=== PATIENT | female | born 1985 | race Caucasian/White ===

== ENCOUNTER → 2019-03-23 08:12 | Outpatient (CLI) | payer SELFPAY ==
--- OUTSIDE RECORDS SUMMARY | 2019-03-23 09:02 | XMS RPT_ITS | CCD ---
:1985 External Reference #:[id number] Author Organization [facility] Care Team Providers Name Role Phone ROBERT, E Unavailable Unavailable ROBERT, E Unavailable Unavailable SIMPSON, T Unavailable Unavailable ROBERT, E Unavailable Unavailable SIMPSON, T Unavailable Unavailable PROVIDER Unavailable Unavailable PROVIDER Unavailable Unavailable PROVIDER Unavailable Unavailable Results Result Name Value Range Unit Interpretation Flag Date Location emergency report on 2018-07-16 EMERGENCY REPORT [facility] EMERGENCY Danita l 07-16-2018 [facility] ROOM REPORT NAME ACCOUNT SEX [facility] AGE ADMIT DISCHARGE PT MED. ([id number]) RECORD# NUMBER DATE DATE TYPE LACIE RAMOS [id number] F 32 07/11/18 07/11/18 3 [id number] ROOM: ER DATE OF : 1985 DICTATING PHYSICIAN: Nino Jones CHIEF COMPLAINT/HISTORY OF PRESENT ILLNESS: Patient came in. She is complaining of generalized abdominal pain. She had some nausea and vomiting. She had some back pain. It is a 6 out of 10. She talked to her practitioner who was concerned and thought she may have pancreatitis or some other etiology and told her to come to the emergency department. She says the pain is a 7 out of 10, suppressed. Nothing made it better or worse. PAST MEDICAL HISTORY: She has had a history of constipation issues in the past and depression. PAST SURGICAL HISTORY: She has had ankle surgery. SOCIAL HISTORY: She does not smoke or drink. She is here with her significant other. REVIEW OF SYSTEMS: Ten systems were reviewed and negative except as mentioned above. PHYSICAL EXAMINATION: She is awake, alert and oriented female in no acute distress. Patient is afebrile, blood pressure 104/57, pulse 113, respirations 18. Head is normocephalic, atraumatic. Eyes: Pupils are equal, round, and reactive to light. Extraocular muscles are intact. Nares are patent. Throat has adequate moisture. Uvula is midline. Neck is supple without petechiae or rash. Heart without murmur. S1 equal to S2. No S3 or S4 appreciated. Lungs are clear to auscultation bilaterally. No rales, rhonchi, or retractions. Abdomen is soft, nontender, nondistended. Skin is warm and dry. DIAGNOSTIC DATA: test negative. Urinalysis unremarkable. She had a CT which showed some changes and possible enteritis, possible constipation. EMERGENCY DEPARTMENT COURSE AND TREATMENT: I see no obvious etiology for abdominal pain. DIAGNOSIS: Abdominal pain, cause not clear. PLAN/DISPOSITION: She can follow up at 6:30 in the morning for a recheck. I also wrote her for MiraLAX. She will be discharged in stable condition. Page 1 of 2 LACIE RAMOS A Emergency Room Report Dictated By: Nino Jones DO 07/11/18 15:04 JOB #: [id number] Transcribed By: chad 07/11/18 20:53 Electronically signed by: SOHAIL Jones D.O. 07/16/18 08:12 Page 2 of 2 LACIE RAMOS A Emergency Room Report urinalysis on 07-11 Bilirubin NEG NORMAL: NEGATIVE Normal 07-11-2018 [facility] (97850) Comment: Performed By: #### [id number] ## ##[place] [address] Blood NEG NORMAL: NEGATIVE Normal 07-11-2018 [facility] (93559) Comment: Performed By: #### [id number] ## ##[place] [id number] Clarity clear NORMAL: CLEAR Normal 07-11-2018 [facility] (52649) Comment: Performed By: #### [id number] ## ##[address] [address] Color sonny NORMAL: YELLOW Normal 07-11-2018 [facility] (31486) Comment: Performed By: #### [id number] ## ##[address] [address] Glucose NORM NORMAL: NORMAL Normal 07-11-2018 [facility] (65651) Comment: Performed By: #### [id number] ## ##[facility],[address] [place] [address] 87759 Ketone 150 NORMAL: NEGATIVE Abnormal 07-11-2018 [facility] (61733) Comment: Performed By: #### [id number] ## ##[facility],[address] [place] [address] 82762 Leukocytes NEG NORMAL: NEGATIVE Normal 07-11-2018 [facility] (12948) Comment: Performed By: #### [id number] ## ##[facility],[address] [place] [address] 43194 Microscopic NOT INDICATED Normal 07-11-2018 [facility] (65439) Comment: Performed By: #### [id number] ## ##[facility],[address] [place] [address] 88353 Nitrite NEG NORMAL: NEGATIVE Normal 07-11-2018 [facility] (11712) Comment: Performed By: #### [id number] ## ##[facility],[address] [place] [address] 51674 ph 6 NORMAL: 5.0-8.0 Normal 07-11-2018 [facility] (06528) Comment: Performed By: #### [id number] ## ##[facility],[address] [place] [address] 44904 Protein mass conc NEG NORMAL: NEGATIVE g/dL Normal 07-11 [facility] ( 06274) Comment: Performed By: #### [id number] ## ##[facility],[address] [place] [address] 80805 Sp [place] 1.020 NORMAL: 1.010-1.030 Normal 8 [facility] ( 15685) Comment: Performed By: #### [id number] ## ##[facility],[address] [place] [address] 38696 Specimen type UNSPECIFIED Normal 07-11-2018 [facility] (55675) Comment: Performed By: #### [id number] ## ##[facility],[address] [place] [address] 11696 Urobilinog NORM NORMAL: NORMAL Normal 07-11-2018 [facility] (25673) Comment: Performed By: #### [id number] ## ##[facility],[address] [place] [address] 26935 urine on 2018-07-11 EXTERNAL QC DONE? YES Normal 07-11-2018 [facility] (43345) Comment: Performed By: #### [id number] ## ##[facility],[address] [place] [address] 50139 INTERNAL QC PASS Normal 07-11-2018 [facility] (21910) Comment: Performed By: #### [id number] ## ##[facility],[address] [place] [address] 73565 UR NEGATIVE NEGATIVE Normal 07-11-2018 [facility] (68984) Comment: Performed By: #### [id number] ## ##[facility],[address] [place] [address] 99266 lipase on 2018-06-17 6 Lipase enzyme act/vol 14.0 18.0 - 51.0 U/L Low 2017 [facility] ( 86690) Comment: Performed By: #### [id number] ## ##[facility],[address] [place] [address] abdomen/pelvis w on 2018-07-11 CT ABDOMEN/PELVIS [place] [address] Normal 07-11-2018 [facility] [address] Ph: [phone] Patient: RACHELLACIE Phone#: : 1985 Age: 32 Gender: F Pt. Type: ER Account: [id number] Location: [facility] Ordering: NINO JONES Exam Date: 07/11/2018/13:43 Family Phys: CODI SIMPSON Charge Code: 534082 Physician: Kit Carson Order #: [id number] DLP Dose#: PROCEDURE: CT ABDOMEN/PELVIS WITH CONTRAST COMPARISON: None. INDICATIONS: Abdominal pain TECHNIQUE: After obtaining the patient's consent, CT images were created with non-ionic intravenous contrast material. All CT scans at this facility use dose modulation, iterative reconstruction, and/or weight based dosing when appropriate to reduce radiation dose to as low as reasonably achievable. IV CONTRAST: Omnipaque 350,80ml TOTAL DOSE: 10.40 CTDIvol(mGy) FINDINGS: LIVER: Normal. No enlargement, atrophy, abnormal density, or significant focal lesion. BILIARY: The gallbladder is present. PANCREAS: Normal. No lesion, fluid collection, ductal dilatation, or atrophy. SPLEEN: Normal. No enlargement or focal lesion. There is a splenule at the splenic hilum. KIDNEYS: Kidneys enhance and excrete contrast symmetrically. No hydronephrosis. ADRENALS: Normal. No mass or enlargement. AORTA/VASCULAR: No aortic aneurysm. RETROPERITONEUM: Normal. No mass or adenopathy. BOWEL/MESENTERY: There are fluid-filled loops of small bowel which are not dilated. There are small mesenteric lymph nodes present. Liquidy stool is seen in the ascending colon. Moderate to large degree of stool throughout the colon. The visualized portion the appendix is unremarkable. ABDOMINAL WALL: Small fat containing umbilical hernia. URINARY BLADDER: Normal. No visible focal wall thickening, lesion, or calculus. PELVIC NODES: Normal. No adenopathy. Continued Report - Page 2 of 2 Patient: LACIE RAMOS Phone#: : 1985 Age: 32 Gender: F Pt. Type: ER Account: [id number] Location: 052 Ordering: NINO JONES Exam Date: 07/11/2018/13:43 Family Phys: CODI SIMPSON Charge Code: 909130 Physician: Kit Carson Order #: [id number] DLP Dose#: PELVIC ORGANS: The uterus is retroverted. No adnexal masses. BONES: Normal. No bony lesion or fracture. LUNG BASES: Normal. No visible pulmonary or pleural disease. OTHER: Negative. CONCLUSION: 1. Fluid-filled loops small bowel without obstruction or dilatation and small mesenteric lymph nodes. This may represent enteritis versus incidental phase of peristalsis. 2. Constipation. Dictated by: Angle Cheek MD on 07/11/2018 at 14:16 Approved by: Angle Cheek MD on 07/11/2018 at 14:16 cmp with egfr on 03-07-26 Age Reported 32 years Normal 07-11-2018 [facility] (70737) Comment: Performed By: #### [id number] ## ##[address] [address] Albumin mass conc 4.3 3.4 - 4.8 g/dL Normal 07-11-2018 [facility] ( 97053) Comment: Performed By: #### [id number] ## ##[address] [address] Albumin/Globulin mass ratio 1.9 0.9 - 1.6 {ratio} High [facility] (91538) Comment: Performed By: #### [id number] ## ##[address] [address] ALK PHOS 18 38 - 126 U/L Low 07-11-2018 [facility] (55710) Comment: Performed By: #### [id number] ## ##[address] [address] ALT/SGPT 15 8 - 35 U/L Normal 07-11-2018 [facility] (58024) Comment: Performed By: #### [id number] ## ##[address] [address] Anion gap 3 molar conc 14 10 - 20 mmol/L Normal 018 [facility] ( 99967) Comment: Performed By: #### [id number] ## ##[address] [address] AST/SGOT 18 13 - 39 U/L Normal 07-11-2018 [facility] (93227) Comment: Performed By: #### [id number] ## ##[address],[place] [address] B/C RATIO 27 0 - 30 ratio Normal 07-11-2018 [facility] (42935) Comment: Performed By: #### [id number] ## ##[facility],[address] [place] [address] 03599 Bilirubin mass conc 0.7 0.0 - 1.5 mg/dl Normal 07-11-2018 [facility] ( 67443) Comment: Performed By: #### [id number] ## ##[facility],[address] [place] [address] 24785 Calcium mass conc 9.0 8.6 - 10.2 mg/dl Normal 07-11-2018 [facility] ( 58769) Comment: Performed By: #### [id number] ## ##[facility],[address] [place] [address] 82384 Chloride molar conc 102 98 - 107 mmol/L Normal 07-11-2018 [facility] ( 54041) Comment: Performed By: #### [id number] ## ##[facility],[address] [place] [address] 10927 CO2 molar conc 23.6 21.0 - 31.0 mmol/L Normal 07-11-2018 [facility] ( 42043) Comment: Performed By: #### [id number] ## ##[facility],[address] [place] [address] 12239 Creatinine mass conc 0.7 0.6 - 1.2 mg/dl Normal 8 [facility] ( 03699) Comment: Performed By: #### [id number] ## ##[facility],[address] [place] [address] 50858 GFR/1.73 sq M >60 60 - 999 mL/min/{1.73_m2} Normal 8 [facility] non-blacks MDRD vol (64027) rate/area (S/P/Bld) Comment: Performed By: #### [id number] ## ##[facility],[address] [place] [address] 79499 Result Comment: ACCORDING TO THE NATIONAL KIDNEY DISEASE EDUCATION PROGRAM(NKDE), A NORMAL eGFR IS A VALUE GREATER THAN OR EQUAL TO 60 ML/MIN/1.73 SQ METERS.CHRONI C KIDNEY DISEASE: <60mL/MIN/1.73 SQ METERSKIDNEY FAILURE: <15mL/MIN/1.73 SQ M ETERSTHIS TEST SHOULD ONLY BE USED FOR PATIENTS 18 YEARS OF AGE AND OLDER. GFR/1.73 sq M predicted among Normal 07-11-2018 [facility] non-blacks MDRD vol rate/area Hospital (08222) (S/P/Bld) Comment: Result Comment: COMPREHENSIV E METABOLIC PANEL Performed By: #### [id number] ## ##[address] [address] Globulin Calculated mass 2.3 1.5 - 3.8 G/DL Normal 07-11 [facility] (S) [facility] ( 02771) Comment: Performed By: #### [id number] ## ##[facility],[address] [place] [address] 03512 Glucose mass conc 99 74 - 106 mg/dl Normal 07-11-2018 [facility] (01479) Comment: Performed By: #### [id number] ## ##[facility],[address] [place] [address] 44986 Potassium molar conc 3.5 3.5 - 5.1 mmol/L Normal 8 [facility] ( 58590) Comment: Performed By: #### [id number] ## ##[facility],[address] [place] [address] 23637 Protein mass conc 6.6 6.4 - 8.3 g/dl Normal 07-11-2018 [facility] ( 41221) Comment: Performed By: #### [id number] ## ##[facility],[address] [place] [address] 75946 Sodium molar conc 136 136 - 145 mmol/l Normal 07-11-2018 [facility] ( 83279) Comment: Performed By: #### [id number] ## ##[facility],[address] [place] [address] 67993 Urea nitrogen mass conc 19 6 - 20 mg/dl Normal 2017 [facility] ( 88133) Comment: Performed By: #### [id number] ## ##[facility],[address] [place] [address] 03931 cbc on 2018-07-11 Basophils Auto #/vol 0.00 0.00 - 0.10 x10EE3/UL Normal 018 [facility] (82016) Comment: Performed By: #### [id number] ## ##[facility],[address] [place] [address] 19719 Basophils/100 WBC Auto (d) 0.1 0.0 - 2.0 % Normal 1 [facility] ( 49280) Comment: Performed By: #### [id number] ## ##[facility],[address] [place] [address] 36867 CBC Normal 07-11-2018 [facility] (15591) Comment: Result Comment: CBC-COMPLETE BLOOD COUNT Performed By: #### [id number] ## ##[facility],[address] [place] [address] 25647 Eosinophils Auto #/vol 0.00 0.00 - 0.50 x10EE3/UL Normal 07-11 [facility] (19198) Comment: Performed By: #### [id number] ## ##[facility],[address] [place] [address] 48795 Eosinophils/100 WBC Auto 0.0 0.0 - 7.0 % Normal 07-11 [facility] ( 76075) Comment: Performed By: #### [id number] ## ##[facility],[address] [place] [address] 70993 Erythrocyte distribution 12.7 12.0 - 15.6 % Normal [facility] width Auto Ratio (RBC) [facility] (58704) Comment: Performed By: #### [id number] ## ##[facility],[address] [place] [address] 62951 Hematocrit Auto Volume 39.4 34.0 - 46.0 % Normal 07-11 [facility] (d) [facility] (96442) Comment: Performed By: #### [id number] ## ##[facility],[address] [place] [address] 45153 Hemoglobin mass conc 14.0 12.0 - 16.0 g/dl Normal 018 [facility] ([facility]) [facility] (11808) Comment: Performed By: #### [id number] ## ##[address] [address] Lymphocytes Auto #/vol 0.40 0.80 - 2.80 x10EE3/UL Low 07-11 [facility] (d) [facility] (94573) Comment: Performed By: #### [id number] ## ##[address] [address] Lymphocytes/100 WBC Auto (d) 4.4 20.0 - 45.0 % Low 07-11-2018 [facility] ( 35130) Comment: Performed By: #### [id number] ## ##[address] [address] MANUAL DIFF N/A Normal 07-11-2018 [facility] (48044) Comment: Performed By: #### [id number] ## ##[address] [address] MCH Auto Entitic mass 30 27 - 33 pg Normal 07-11-20 18 [facility] (RBC) [facility] ( 97591) Comment: Performed By: #### [id number] ## ##[facility],[address] [place] [address] 70277 MCHC Auto mass conc 36 32 - 36 X10 3 Normal 07-11-2018 [facility] ([facility] ( 65177) Comment: Performed By: #### [id number] ## ##[address] [address] MCV Auto Entitic volume 85 80 - 99 fl Normal 2017 [facility] ( 05806) Comment: Performed By: #### [id number] ## ##[address] [address] Monocytes Auto #/vol 0.30 0.20 - 1.00 x10EE3/UL Normal 018 [facility] (91806) Comment: Performed By: #### [id number] ## ##[address] [address] MONOS % 3.1 0.0 - 10.0 % Normal 07-11-2018 [facility] (02776) Comment: Performed By: #### [id number] ## ##[address] [address] Morphology Interp [place] (Bld) N/A Normal [facility] (37853) Comment: Result Comment: {CD] Performed By: #### [id number] ## ##[address] [address] Neutrophils Auto #/vol 7.50 1.50 - 7.10 x10EE3/UL High 07-11 [facility] ([facility]) [facility] (84558) Comment: Performed By: #### [id number] ## ##[address] [address] Neutrophils/100 WBC Auto 92.4 46.0 - 76.0 % High [facility] ([facility] (36282) Comment: Performed By: #### [id number] ## ##[address] [address] Platelet mean volume Auto 6.9 6.6 - 10.5 fl Normal [facility] (58467) Comment: Result Comment: AUTOMATED DI FFERENTIAL Performed By: #### [id number] ## ##[facility],[address] [place] [address] 09694 Platelets Auto #/vol 154 150 - 450 x10EE3/UL Normal 8 [facility] (39015) Comment: Performed By: #### [id number] ## ##[facility],[address] [place] [address] 76684 RBC Auto #/vol 4.65 4.10 - 5.30 x 10EE6/UL Normal 07-11-2018 [facility] (28801) Comment: Performed By: #### [id number] ## ##[facility],[address] [place] [address] 29825 WBC Auto #/vol 8.1 4.5 - 10.8 x 10EE3/UL Normal 07-11-2018 [facility] ( 62787) Comment: Performed By: #### [id number] ## ##[facility],[address] [place] [address] 32280 Encounters Date Type Reason Provider Location 07-11-2018 - Emergency Esophageal NINO Conde [facility] 07-11-2018 department patient disorders ROBERT DICKSON [place] [facility] (64288 ) CODI Conde ROBERTELMA SIMPSON UNKNOWN PROVIDER UNKNOWN PROVIDER UNKNOWN PROVIDER Procedures Procedure Name Date Provider Location Urinalysis 07-11-2018 [facility] (15079) Comment: Result Comment: URINALYSIS Performed By: #### [id number] ## ##[address] [address] Summary Purpose Family History No Family History Records Found Advance Directives No Advanced Directives Records Found Additional Source Comments FOR RECORDS PERTAINING TO PATIENTS WHO ARE OR HAVE BEEN ENROLLED IN A CHEMICAL DEPENDENCY/SUBSTANCE ABUSE PROGRAM, SOME INFORMATION MAY BE OMITTED. This clinical summary was aggregated from multiple sources. Caution should be exercised in using it in the provision of clinical care. This summary normalizes information from multiple sources, and as a consequence, information in this document may materially changethe coding, format and clinical context of patient data. In addition, data may be omittedin some cases. CLINICAL DECISIONS SHOULD BE BASED ON THE PRIMARY CLINICAL RECORDS. [facility] provides no warranty or guarantee of the accuracy or completeness of information in this document. UNRECOGNIZED CONTENT PROVIDED BELOW FOR UNRECOGNIZED SECTION INFORMATION SOURCE DATE CREATED AUTHOR AUTHOR'S ORGANIZATIO N 08/23/2018 [facility]
[2019-03-23 10:44] LABS: Absolute Lymphocyte Count 1.52 X10^3/ul (0.83-4.51); Absolute Neutrophil Count 2.5 X10^3/uL (2.0-7.7); Basophil# 0.01 X10^3/uL; Basophil% 0.2 % (0-1); Eosinophil# 0.13 X10^3/uL; Eosinophils% 2.9 % (0-5); Hematocrit 42.9 % (37-47); Hemoglobin 14.3 g/dl (12.0-15.0); Lymphocyte # 1.52 X10^3/ul (4.0); Lymphocyte % 34.1 % (19-41); Mean Corp Hgb Conc 33.3 g/gl (32-36); Mean Corpuscular Hgb 29.4 pg (27.0-32.0); Mean Corpuscular Volume 88.3 fL (81-99); Mean Platelet Vol. 9.4 fl (6.2-12.0); Monocyte# 0.27 X10^3/uL; Monocyte% 6.1 % (0-10); Neutrophil # 2.52 X10^3/uL (2.7-7.7); Neutrophil % 56.5 % (47-70); Platelet Count 194 K/mm3 (150-450); RBC Distribution Width SD 41.6 fl (35.1-43.9); Red Blood Count 4.86 M/mm3 (4.2-5.4); White Blood Count 4.5 K/mm3 (4.4-11.0)
[2019-03-23 10:46] LABS: POSITIVE COUNT NO; POSITIVE DIFFERENTIAL NO; POSITIVE MORPHOLOGY NO
[2019-03-23 11:05] LABS: Anion Gap 4 (5-15); BUN 21 mg/dL (7-18); BUN/Creat Ratio 26.7 RATIO (10-20); Calcium,Total 8.9 mg/dL (8.5-10.1); Chloride 107 mmol/L (98-107); Cholesterol 160 mg/dL (200); Creatinine, Serum 0.79 mg/dL (0.55-1.02); EST Glomerular Filtration Rate 88 mL/min (>60); Est Glom Filt Rate - Afr Amer 107 mL/min (>60); Glucose 96 mg/dL (74-106); High Density Lipoprotein 55 mg/dL; Potassium 3.9 mmol/L (3.5-5.1); Sodium Level 138 mmol/L (136-145); Thyroid Stim Hormone (TSH) 2.74 uIU/mL (0.358-3.74); Triglycerides 56 mg/dL; Very Low Density Lipoprotein 11 mg/dL (5-40)
== END ==
PROVIDERS: Family Provider Family Medicine; PCP Family Medicine; Referring Provider Family Medicine; Visit Provider Family Medicine
DX: Z00.00 Encounter for general adult medical examination without abnormal findings (principal); R53.83 Other fatigue
CPT/HCPCS: 36415; 80048; 80061; 84443; 85025

== ENCOUNTER → 2020-03-01 15:34 | Outpatient (CLI) | payer SELFPAY ==
[2015-12-30 16:03] VITALS: BMI 31.2
[2020-03-01 16:27] LABS: Hemoglobin A1c 4.9 % (3.8-5.6)
[2020-03-01 16:49] LABS: Estradiol 35.5 pg/mL; Follicle Stimulating Hormone 10.2 mIU/mL; Prolactin 44.2 ng/mL
[2020-03-01 19:21] LABS: Vitamin D,25 Hydroxy 56.2 ng/mL
[2020-03-03 08:08] LABS: DHEA Sulfate 86.6 ug/dL (57.3-279.2)
[2020-03-07 14:55] LABS: HPV APTIMA, High Risk Negative (Negative)
== END ==
PROVIDERS: Visit Provider Obstetrics & Gynecology
DX: Z12.4 Encounter for screening for malignant neoplasm of cervix (principal); N93.9 Abnormal uterine and vaginal bleeding, unspecified; N94.3 Premenstrual tension syndrome
CPT/HCPCS: 36415; 82306; 82627; 82670; 83001; 83036; 84146; 84270; 84403; 87624; 88175; 82626; G0145

== ENCOUNTER → 2020-04-15 14:37 | Outpatient (CLI) | payer SELFPAY ==
[2015-12-30 16:03] VITALS: BMI 31.2
[2020-04-15 16:32] LABS: Estradiol 68.7 pg/mL
[2020-04-15 16:35] LABS: Progesterone Level 25.53 ng/mL (See Comment)
== END ==
PROVIDERS: Visit Provider Obstetrics & Gynecology
DX: N94.3 Premenstrual tension syndrome (principal); N92.6 Irregular menstruation, unspecified; N93.9 Abnormal uterine and vaginal bleeding, unspecified; Z79.899 Other long term (current) drug therapy
CPT/HCPCS: 36415; 82627; 82670; 84144; 82626

== ENCOUNTER 2021-03-15 10:12 | Emergency (ER) | payer OTHER, SELFPAY ==
[2021-03-15 10:14] VITALS: BP 120/75; PULSE 90; RESP 16; TEMP 36; O2SAT 99; BMI 25.7
--- NOTE | 2021-03-15 10:25 | EDS_ITS ---
HPI History of Present Illness Chief Complaint: Dental Informant: patient Onset/Context/Timing Onset: Days Context: Gradual Onset Current Severity: Mild Maximum Severity: Moderate Narrative Narrative: Patient presents secondary to dental pain. Patient had a root canal last week. During the procedure they noted that the patient had an abscess. She went back to the dentist last Saturday and was started on amoxicillin and [place]. Patient states she was also taking Advil to help with swelling. She still has pain but states swelling has significantly improved. She was advised to come in for evaluation. Patient denies fever or chills. No problems swallowing. PFSH PFS Medical History Depression no medical history Home Medications Children's Multi-Vit Gummies 12/30/15 [History Last Taken 12/30/15 10:00] fluvoxamine 100 mg PO DAILY 12/30/15 [History Last Taken 12/30/15 10:00] trazodone 50 mg PO DAILY 12/30/15 [History Last Taken 12/29/15 22:00] clindamycin HCl 300 mg PO 4X/DAY #80 cap 03/15/21 [Rx Last Taken Unknown] venlafaxine 75 mg PO DAILY 03/15/21 [History Last Taken Unknown] Allergy/AdvReac Type Severity Reaction Status Date / Time No Known Allergies Allergy Verified 03/15/21 10:13 Social History Smoking Status: Never smoker ROS ROS ED Constitutional Constitutional ED: Denies chills or fever(s) Eyes Eyes: Denies change in vision ENT ENT ED: Reports other Details: Right upper dental pain ; Denies sore throat Cardiovascular Cardiovascular: Denies chest pain Respiratory/Chest Respiratory/Chest: Denies cough or dyspnea Gastrointestinal Gastrointestinal: Denies abdominal pain, diarrhea, nausea or vomiting Genitourinary Genitourinary ED: Denies dysuria Musculoskeletal Musculoskeletal: Denies back pain Integumentary Denies rash Neurologic Neurologic: Denies headache(s) or weakness Psychiatric Psychiatric: Denies anxiety or depression Endocrine Endocrinology: Denies polydipsia or polyuria Allergic/Immunologic Allergic/Immunologic ED: Denies urticaria EXAM Physical Exam Const Vital Signs: 03/15/21 10:14 Temperature 96.8 F L Temperature Source Temporal Pulse Rate 90 Respiratory Rate 16 Blood Pressure 120/75 Blood Pressure Mean 90 Pulse Ox 99 Oxygen Delivery Method Room Air Positive well nourished and well developed General Appearance ED: well developed HEENT Reports TM's clear HEENT Narrative: Right maxillary first molar tender. Minimal surrounding gum edema. No trismus and posterior pharynx exam is normal. No evidence of Hesham's angina. Patient tolerating secretions well and has a strong voice. Tympanic Membrane ED: Yes TM's clear Eyes PERRL and EOMs intact bilaterally Neck supple Chest Wall inspection of chest normal and palpation of chest normal Resp normal respiratory effort and clear to auscultation bilaterally Cardio regular rate and regular rhythm Extremity normal to inspection Neuro oriented x3 Sensorium / Orientation: alert Psych mental status grossly normal Skin no rashes or lesions noted MDM MDM Treatment and Re-Evaluation Comments:: Patient has been on amoxicillin. She be switched to clindamycin. She will continue Advil as needed at home for pain. She is to follow-up with her dentist next week. Discharge Plan Triage Chief Complaint: Dental ED Provider: Katie Diaz Dx/Rx/DC Orders Clinical Impression: Odontalgia Instructions: ED Dental Pain Prescriptions: New clindamycin HCl 150 MG capsule 300 mg PO 4X/DAY Qty: 80 RF: 0 No Action trazodone 50 MG tablet 50 mg PO DAILY RF: 0 fluvoxamine 100 MG capsule,extended release 24hr 100 mg PO DAILY RF: 0 Children's Multi-Vit Gummies RF: 0 venlafaxine 75 mg capsule,extended release 24hr 75 mg PO DAILY RF: 0 Primary Care Provider: Gayathri Montiel,Out of Referrals: Gayathri Montiel,Out of [Primary Care Provider] - Activity Restrictions/Additional Instructions: Follow-up with your dentist next week. Disposition Disposition: Home, Self Care
[2021-03-15] MEDS: Clindamycin HCl 150 MG Capsule 300 MG PO (10:34)
== END 2021-03-15 10:45 | disposition home or self-care (01) ==
LOC: ED 10:44
PROVIDERS: Emergency Provider Emergency Medicine; PCP Family Medicine
DX: K08.89 Other specified disorders of teeth and supporting structures (principal); F32.9 Major depressive disorder, single episode, unspecified; Z79.899 Other long term (current) drug therapy
CPT/HCPCS: 99283

== ENCOUNTER → 2024-12-04 | Outpatient (CLI) | payer SELFPAY ==
[2024-12-04 17:47] LABS: Absolute Lymphocyte Count 2.24 X10^3/uL (0.83-4.51); Absolute Neutrophil Count 4.3 X10^3/uL (2.0-7.7); Basophil# 0.01 X10^3/uL; Basophil% 0.1 % (0-1); Eosinophil# 0.17 X10^3/uL; Eosinophils% 2.4 % (0-5); Hematocrit 42.1 % (37-47); Hemoglobin 14.2 g/dL (12.0-15.0); Lymphocyte # 2.24 X10^3/ul (0.83-4.51); Mean Corp Hgb Conc 33.7 g/dL (32-36); Mean Corpuscular Hgb 29.6 pg (27.0-32.0); Mean Corpuscular Volume 87.7 fL (81-99); Mean Platelet Vol. 8.9 fl (6.2-12.0); Monocyte# 0.46 X10^3/uL; Monocyte% 6.4 % (0-10); NRBC Flagged by Analyzer 0 % (0-5); Neutrophil # 4.32 X10^3/uL (2.7-7.7); Neutrophil % 59.8 % (47-70); Platelet Count 258 K/mm3 (150-450); RBC Distribution Width CV 12.6 % (11.6-14.6); RBC Distribution Width SD 40.5 fl (35.1-43.9); White Blood Count 7.2 K/mm3 (4.4-11.0)
[2024-12-04 18:20] LABS: Anion Gap 12 (5-15); BUN 12 mg/dL (4-19); BUN/Creat Ratio 15.5 RATIO (10-20); Calcium,Total 9.6 mg/dL (7.6-11.0); Carbon Dioxide 22.8 mmol/L (21.0-32.0); Chloride 103 mmol/L (98-108); Cholesterol 186 mg/dL (<=200); Creatinine, Serum 0.76 mg/dL (0.70-1.20); EST Glomerular Filtration Rate 102 (>60); Glucose 77 mg/dL (70-99); High Density Lipoprotein 46 mg/dL; Low Density Lipoprotein Calc. 92 mg/dL; Potassium 3.9 mmol/L (3.3-5.1); Sodium Level 138 mmol/L (133-145); Triglycerides 243 mg/dL; Very Low Density Lipoprotein 49 mg/dL (5-40); cholesterol:hdl ratio screen 4.07
== END | disposition home or self-care (01) ==
LOC: MFPLAB 16:17
PROVIDERS: PCP Family Medicine; Referring Provider Family Medicine; Visit Provider Family Medicine
DX: Z00.00 Encounter for general adult medical examination without abnormal findings (principal)
CPT/HCPCS: 36415; 80048; 80061; 85025

== ENCOUNTER → 2025-03-18 | Outpatient (CLI) | payer OTHER, SELFPAY ==
[2025-03-18 12:22] LABS: Hematocrit 40.1 % (37-47); Hemoglobin 13.4 g/dL (12.0-15.0); Mean Corp Hgb Conc 33.4 g/dL (32-36); Mean Corpuscular Volume 88.9 fL (81-99); Mean Platelet Vol. 9.3 fl (6.2-12.0); Platelet Count 227 K/mm3 (150-450); RBC Distribution Width CV 12.5 % (11.6-14.6); RBC Distribution Width SD 41.1 fl (35.1-43.9); Red Blood Count 4.51 M/mm3 (4.2-5.4); White Blood Count 5.1 K/mm3 (4.4-11.0)
[2025-03-18 13:00] LABS: Anion Gap 11 (5-15); BUN 11 mg/dL (4-19); BUN/Creat Ratio 15.3 RATIO (10-20); Calcium,Total 9.0 mg/dL (7.6-11.0); Carbon Dioxide 22.2 mmol/L (21.0-32.0); Chloride 107 mmol/L (98-108); Glucose 80 mg/dL (70-99); Potassium 3.9 mmol/L (3.3-5.1)
== END | disposition home or self-care (01) ==
LOC: MFPLAB 09:17
PROVIDERS: PCP Family Medicine; Referring Provider Family Medicine; Visit Provider Family Medicine
DX: R00.2 Palpitations (principal)
CPT/HCPCS: 36415; 80048; 84443; 85027

== ENCOUNTER → 2025-04-17 | Outpatient (CLI) | payer OTHER, SELFPAY ==
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
--- OUTSIDE RECORDS SUMMARY | 2025-04-17 08:15 | XMS RPT_ITS | CCD ---
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 100.0100 #### [facility] [address] [place], [place], [address] WBC (Bld) [#/Vol] 7.2 10*3/uL Normal 4.4-11.0 [facility] Comment on above: Order Comment: Inter face Comments: Screening Order Date: 11/27/24 Order Info: 0184-1 - CBCD Comments: Screening Performed By: #### L 100.0100 #### [facility] [address] [place], [place], [address] Calculated very low density lipoprotein (VLDL) cholesterol measurementOrdered By: Jamie Porras on 12-04-2024 Calculated very low density lipoprotein (VLDL) cholesterol measurement 49 mg/dL High 5-40 [facility] VLDL Cholesterol 49 mg/dL High 5-40 [facility] Carbon dioxide, total [Moles /volume] in Central venous bloodOrdered By: Jamei Porras on 12-04-2024 CO2 [Moles/Vol] 22.8 mmol/L 21.0-32.0 [facility] Chloride assayOrdered By: Daniel Porras on 12-04-2024 Chloride [Moles/Vol] 103 mmol/L 98-108 [facility] Eosinophil percentageOrdered By: Jamie Porras on 12-04-2024 Eosinophils/100 WBC (Bld) 2.4 % 0-5 [facility] Erythrocyte distribution wid th ratioOrdered By: Jamie Porras on 12-04-2024 Erythrocyte distribution width (RBC) [Ratio] 12.6 % 11.6-14.6 [facility] Erythrocyte distribution wid th standard deviationOrdered By: Jamie Porras on 12-04-2024 Erythrocyte distribution width (RBC) [Entitic vol] 40.5 fL 35.1-43.9 [facility] Erythrocyte distribution width (RBC) [Ratio] 40.5 fl 35.1-43.9 [facility] GFR/1.73 sq M.predicted santy g non-blacks MDRD (S/P/Bld) [Vol rate/Area]Ordered By: Jamie Porras on 12-04-2024 Estimated GFR (MDRD) Non-Af Amer 102 >60 [facility] Comment on above: mL/min/1.73m2 CKD-EP I Creatinine Equation (2020) Glomerular filtration rate ( GFR) estimation/1.73 sq m using serum, plasma, or whole bOrdered By: Jamie Porras on 12-04-2024 GFR/1.73 sq M.predicted among non-blacks MDRD (S/P/Bld) [Vol rate/Area] 102 mL/min/{1.73_m2} >60 [facility] Comment on above: mL/min/1.73m2 CKD-EP I Creatinine Equation (2020) Hematocrit Auto (Bld) [Volum e fraction]Ordered By: Jamie Porras on 12-04-2024 Hematocrit (Bld) [Volume fraction] 42.1 % 37-47 [facility] Hemoglobin measurementOrdere d By: aJmie Porras on 12-04-2024 Hemoglobin (Bld) [Mass/Vol] 14.2 g/dL 12.0-15.0 [facility] Immature granulocytes/100 WB C Auto (Bld)Ordered By: Jamie Porras on 12-04-2024 Immature granulocytes/100 WBC (Bld) 0.300 % 0.0-0.9 [facility] Comment on above: IG% - Immature Granu locytes (promyelocytes, myelocytes and metamyelocytes) > 1% indicates that a LEFT SHIFT is Present. LDL calc ser/plasOrdered By: Jamie Porras on 12-04-2024 Cholesterol in LDL [Mass/Vol] 92 mg/dL [facility] Comment on above: Rznqltijeg=634-246 m g/dL & Higher Ycpe=667 mg/dL or greater LDL Cholesterol, Calculated 92 mg/dL [facility] Comment on above: Efsmfyldgf=101-210 m g/dL & Higher Psup=461 mg/dL or greater Lipid Profileon 12-04-2024 CHOL:HDL 4.07 Normal [facility] Comment on above: Performed By: #### L 500.4100, L500.2500 #### [facility], [address] Cholesterol [Mass/Vol] 186 mg/dL Normal <=200 [facility] Comment on above: Result Comment: Chol esterol level, Desirable <200 mg/dL Borderline high cholesterol 200-239 mg/dL High cholesterol >=240 mg/dL Recommendations of the NCEP Adult Treatment Panel for the following risk-cutoff thresholds for the [place] population. Performed By: #### L 500.4100, L500.2500 #### [facility] [address] [place], [address] Cholesterol in HDL [Mass/Vol] 46 mg/dL Normal [facility] Comment on above: Result Comment: Ute onal Cholesterol Education Program (NCEP) guidelines: <40 mg/dL: Low HDL-cholesterol (major risk factor for CHD) >= 60 mg/dL: High HDL-cholesterol (negative risk factor for CHD) HDL-cholesterol is affected by a number of factors, e.g. smoking, exercise, hormones, sex and age. Performed By: #### L 500.4100, L500.2500 #### [facility] [address] [place], [address] Cholesterol in LDL [Mass/Vol] 92 mg/dL Normal [facility] Comment on above: Result Comment: Bord gwvmvj=910-225 mg/dL Higher Lqza=634 mg/dL or greater Performed By: #### L 500.4100, L500.2500 #### [facility] [address] [place], [address] Cholesterol in VLDL [Mass/Vol] 49 mg/dL High 5-40 [facility] Comment on above: Performed By: #### L 500.4100, L500.2500 #### [facility] [address] [place], [address] Triglyceride [Mass/Vol] 243 mg/dL High [facility] Comment on above: Result Comment: The drugs N-Acetylcysteine and Metamizole may falsely depress this assay. Normal range: <150 mg/dL Borderline High: 150-199 mg/dL High: 200-499 mg/dL Very High: >500 mg/dL Performed By: #### L 500.4100, L500.2500 #### [facility] [address] [place], [address] Lymphocytes Auto (Unsp spec) [#/Vol]Ordered By: Jamie Porras on 12-04-2024 Lymphocytes (Bld) [#/Vol] 2.24 10*3/uL 0.83-4.51 [facility] Lymphocytes/100 WBC Auto (Un sp spec)Ordered By: Jamie Porras on 12-04-2024 Lymphocytes/100 WBC (Bld) 31.0 % 19-41 [facility] MCV (mean corpuscular volume ) determinationOrdered By: Jamie Porras on 12-04-2024 MCV (RBC) [Entitic vol] 87.7 fL 81-[address] [facility] Mean corpuscular hemoglobin (MCH) determinationOrdered By: Jamie Porras on 12-04-2024 MCH (RBC) [Entitic mass] 29.6 pg 27.0-32.0 [facility] Mean corpuscular hemoglobin concentration (MCHC) determinationOrdered By: Jamie Porras on 12-04-2024 MCHC (RBC) [Mass/Vol] 33.7 g/dL 32-36 [facility] Mean platelet volume determi nationOrdered By: Jamie Porras on 12-04-2024 Platelet mean volume (Bld) [Entitic vol] 8.9 fL 6.2-12.0 [facility] Monocyte percentageOrdered B y: Jamie Porras on 12-04-2024 Monocytes/100 WBC (Bld) 6.4 % 0-10 [facility] Neutrophil percentageOrdered By: Jamie Porras on 12-04-2024 Neutrophils/100 WBC (Bld) 59.8 % 47-70 [facility] Nucleated red blood cell per centageOrdered By: Jamie Porras on 12-04-2024 Nucleated RBC/100 WBC (Bld) [Ratio] 0 % 0-5 [facility] Platelet countOrdered By: Daniel Porras on 12-04-2024 Platelets (Bld) [#/Vol] 258 10*3/uL 150-450 [facility] Potassium (Unsp spec) [Mass/ Vol]Ordered By: Jamie Porras on 12-04-2024 Potassium [Moles/Vol] 3.9 mmol/L 3.3-5.1 [facility] Potassium measurement (mass/ volume)Ordered By: Jamie Porras on 12-04-2024 Potassium (Unsp spec) [Mass/Vol] 3.9 mmol/L 3.3-5.1 [facility] RBC Auto (Bld) [#/Vol]Ordere d By: Jamie Porras on 12-04-2024 RBC (Bld) [#/Vol] 4.80 10*6/uL 4.2-5.4 [facility] Screening total cholesterol/ high density lipoprotein (HDL) cholesterol ratioOrdered By: Jamie Porras on 12-04-2024 Cholesterol.total/Choles terol in HDL [Mass ratio] 4.07 {ratio} [facility] Serum creatinine measurement (mass/volume)Ordered By: Jamie Porras on 12-04-2024 Creatinine [Mass/Vol] 0.76 mg/dL 0.70-1.20 [facility] Serum glucose measurement (m ass/volume)Ordered By: Jamie Porras on 12-04-2024 Glucose [Mass/Vol] 77 mg/dL 70-99 [facility] Serum or plasma calcium daniel urement (mass/volume)Ordered By: Jamie Porras on 12-04-2024 Calcium [Mass/Vol] 9.6 mg/dL 7.6-11.0 [facility] Serum or plasma cholesterol in HDL measurement (mass/volume)Ordered By: Jamie Porras on 12-04-2024 Cholesterol in HDL [Mass/Vol] 46 mg/dL >40 [facility] Comment on above: National Cholesterol Education Program (NCEP) guidelines:<40 mg/dL: Low HDL-cholesterol (major risk factor for CHD)>= 60 mg/dL: High HDL-cholesterol (negative risk factor for CHD)HDL-cholesterol is affected by a number of factors, e.g. smoking, exercise, hormones, sex and age. Serum or plasma cholesterol measurement (mass/volume)Ordered By: Jamie Porras on 12-04-2024 Cholesterol [Mass/Vol] 186 mg/dL <201 [facility] Comment on above: Cholesterol level, D esirable <200 mg/dLBorderline high cholesterol 200-239 mg/dLHigh cholesterol >=240 mg/dLRecommendations of the NCEP Adult Treatment Panel for the following risk-cutoff thresholds for the [place] population. Serum or plasma urea nitroge n measurement (mass/volume)Ordered By: Jamie Porras on 12-04-2024 Urea nitrogen [Mass/Vol] 12 mg/dL 4-19 [facility] Sodium levelOrdered By: Jamie Porras on 12-04-2024 Sodium [Moles/Vol] 138 mmol/L 133-145 [facility] Triglycerides measurementOrd ered By: Jamie Porras on 12-04-2024 Triglyceride [Mass/Vol] 243 mg/dL High <199 [facility] Comment on above: The drugs N-Acetylcy steine and Metamizole may falsely depress this assay. Normal range: <150 mg/dLBorderline High: 150-199 mg/dLHigh: 200-499 mg/dLVery High: >500 mg/dL White blood cell (WBC) count Ordered By: Jamie Porras on 12-04-2024 WBC (Bld) [#/Vol] 7.2 10*3/uL 4.4-11.0 [facility] RUBEOon 09-08-2024 Rubeola IgG Ab Positive [facility] Comment on above: Result Comment: INTE RPRETATION OF RUBEOLA (MEASLES) IgG BY EIA: Negative: No detectable Measles IgG antibody. Presumed non-immune to measles virus. Positive: Measles IgG antibody Detected. Presumed immune to measles virus. If clinically indicated, order Measles IgM to rule out active infection. Equivocal: Equivocal for antibodies to Measles. Suggest repeat testing 10-14 days. Performed By: #### R UBEO, VARIS, RUBIS, HBSAB #### [place] [id number] [place] [address] VARISon 09-08-[address] Positive [facility] Comment on above: Result Comment: INTE RPRETATION OF VARICELLA IMMUNE STATUS IgG BY EIA: Negative: No detectable VZV IgG antibody. Positive: VZV IgG antibody Detected. If clinically indicated, order Varicella IgM to rule out recent infection. Equivocal: Equivocal for antibodies to VZV. Suggest repeat testing in 10-14 days. Performed By: #### R UBEO, VARIS, RUBIS, HBSAB #### [address] [address] RUBISon 09-07-[address] Positive Normal Positive [facility] Comment on above: Result Comment: This immune status assay detects IgM and/or IgG antibody to Rubella. Interpret results in conjunction with clinical history. POS: Antibody detected; exposure at undetermined recent or distant time. If clinically indicated, order Rubella IGM to rule out recent infection. NEG: No antibody detected. Performed By: #### R UBEO, VARIS, RUBIS, HBSAB #### [address] [address] HBSABon 09-04-2024 Hep B Surf Ab >54776.0 Normal >=10.0 [facility] Comment on above: Result Comment: 0 to < 10.0 mIU/mL Nonreactive Patient is considered not to have protective immunity to HBV infection >/= 10.0 mIU/mL Reactive Patient is considered to have protective immunity to HBV infection. This assay is traceable to the World Health Organization (WHO) Hepatitis B Immunoglobulin 1st International Reference Preparation (1976). The accepted criteria for immunity to HBV is anti-HBs activity >/= 10.0 mIU/mL, as defined by the WHO International Reference Preparation. Performed By: #### R MARIE HAQUE RUBIS, HBSAB #### [place] [id number] MEASLES ANTIBODY, IGGon MEASLES ANTIBODY, IGG Positive Invalid Interpretation Code [facility] Comment on above: Order Comment: Prese nce of detectable measles virus IgG antibodies. A positive result generally indicates exposure to measles virus or previous vaccination. Release to patient->Automatic MUMPS ANTIBODY, IGGon 2023 MUMPS ANTIBODY, IGG Positive Invalid Interpretation Code [facility] Comment on above: Order Comment: Prese nce of detectable mumps virus IgG antibodies. A positive result generally indicates past exposure to mumps virus or previous vaccination. Release to patient->Automatic Measles Antibody IgGOrdered By: Padmini Wray on 07-24-2024 MeV IgG IA Ql (S) Positive [facility] Presence of detectable measles virus IgG antibodies. A positive result generally indicates exposure to measles virus or previous vaccination. [facility] Mumps Antibody, IgGon 2023 MuV IgG IA Ql (S) Positive [facility] Presence of detectable mumps virus IgG antibodies. A positive result generally indicates past exposure to mumps virus or previous vaccination. [facility] No Panel InformationOrdered By: Padmini Wray on 07-24-2024 [facility] QUANTIFERON TB GOLDon 2023 Mitogen minus NIL >9.89 Invalid Interpretation Code [facility] Comment on above: Order Comment: Quant iFERON-TB Gold Plus is a qualitative indirect chemiluminescence immunoassay test for M tuberculosis infection and is intended for use in conjunction with risk assessment, radiography, and other medical and diagnostic evaluations. The QuantiFERON-TB Gold Plus result is determined by subtracting the Nil value from either TB antigen value. The Mitogen tube serves as a control for the test. The TB1-NIL tube specifically detects CD4+ lymphocyte reactivity; the TB2-NIL tube can detect both CD4+ and CD8+ lymphocyte reactivity. An overall Negative result does not completely rule out TB infection. A false-positive result in the absence of other clinical evidence of TB infection is not uncommon and may be due to infection from some nontuberculosis mycobacteria (M. kansasii, M szulgai, or M. marinum). Clinical research suggests a QuantiFERON-TB Gold Plus interpretation of Positive with TB1 minus Nil and TB2 minus Nil values <1.00 may represent a false-positive in the absence of other clinical evidence, especially in low-risk individuals. An overall indeterminate result is inconclusive and should not be viewed as low or intermediate infection. Indeterminate results can be caused by low Mitogen or high Nil values. Low mitogen results may occur due to a low lymphocyte count, reduced lymphocyte activity, inability of the patient's lymphocytes to generate IFN-gamma, or inappropriate handling of the tubes. High values for the Nil tube may occur due to heterophile antibody effects of nonspecific, circulating IFN-gamma in the patient's blood sample. When clinically indicated, indeterminate tests should be repeated on a new specimen. Testing Performed: [address] [address] Release to patient->Automatic Quantiferon TB Gold Negative Invalid Interpretation Code Negative [facility] Comment on above: Order Comment: Quant iFERON-TB Gold Plus is a qualitative indirect chemiluminescence immunoassay test for M tuberculosis infection and is intended for use in conjunction with risk assessment, radiography, and other medical and diagnostic evaluations. The QuantiFERON-TB Gold Plus result is determined by subtracting the Nil value from either TB antigen value. The Mitogen tube serves as a control for the test. The TB1-NIL tube specifically detects CD4+ lymphocyte reactivity; the TB2-NIL tube can detect both CD4+ and CD8+ lymphocyte reactivity. An overall Negative result does not completely rule out TB infection. A false-positive result in the absence of other clinical evidence of TB infection is not uncommon and may be due to infection from some nontuberculosis mycobacteria (M. kansasii, M szulgai, or M. marinum). Clinical research suggests a QuantiFERON-TB Gold Plus interpretation of Positive with TB1 minus Nil and TB2 minus Nil values <1.00 may represent a false-positive in the absence of other clinical evidence, especially in low-risk individuals. An overall indeterminate result is inconclusive and should not be viewed as low or intermediate infection. Indeterminate results can be caused by low Mitogen or high Nil values. Low mitogen results may occur due to a low lymphocyte count, reduced lymphocyte activity, inability of the patient's lymphocytes to generate IFN-gamma, or inappropriate handling of the tubes. High values for the Nil tube may occur due to heterophile antibody effects of nonspecific, circulating IFN-gamma in the patient's blood sample. When clinically indicated, indeterminate tests should be repeated on a new specimen. Testing Performed: [address] [address] Release to patient->Automatic TB1 minus NIL 0.01 IU/mL Invalid Interpretation Code -0.50-0.34 [facility] Comment on above: Order Comment: Quant iFERON-TB Gold Plus is a qualitative indirect chemiluminescence immunoassay test for M tuberculosis infection and is intended for use in conjunction with risk assessment, radiography, and other medical and diagnostic evaluations. The QuantiFERON-TB Gold Plus result is determined by subtracting the Nil value from either TB antigen value. The Mitogen tube serves as a control for the test. The TB1-NIL tube specifically detects CD4+ lymphocyte reactivity; the TB2-NIL tube can detect both CD4+ and CD8+ lymphocyte reactivity. An overall Negative result does not completely rule out TB infection. A false-positive result in the absence of other clinical evidence of TB infection is not uncommon and may be due to infection from some nontuberculosis mycobacteria (M. kansasii, M szulgai, or M. marinum). Clinical research suggests a QuantiFERON-TB Gold Plus interpretation of Positive with TB1 minus Nil and TB2 minus Nil values <1.00 may represent a false-positive in the absence of other clinical evidence, especially in low-risk individuals. An overall indeterminate result is inconclusive and should not be viewed as low or intermediate infection. Indeterminate results can be caused by low Mitogen or high Nil values. Low mitogen results may occur due to a low lymphocyte count, reduced lymphocyte activity, inability of the patient's lymphocytes to generate IFN-gamma, or inappropriate handling of the tubes. High values for the Nil tube may occur due to heterophile antibody effects of nonspecific, circulating IFN-gamma in the patient's blood sample. When clinically indicated, indeterminate tests should be repeated on a new specimen. Testing Performed: [address] [address] Release to patient->Automatic TB2 minus NIL 0.03 IU/mL Invalid Interpretation Code -0.50-0.34 [facility] Comment on above: Order Comment: Quant iFERON-TB Gold Plus is a qualitative indirect chemiluminescence immunoassay test for M tuberculosis infection and is intended for use in conjunction with risk assessment, radiography, and other medical and diagnostic evaluations. The QuantiFERON-TB Gold Plus result is determined by subtracting the Nil value from either TB antigen value. The Mitogen tube serves as a control for the test. The TB1-NIL tube specifically detects CD4+ lymphocyte reactivity; the TB2-NIL tube can detect both CD4+ and CD8+ lymphocyte reactivity. An overall Negative result does not completely rule out TB infection. A false-positive result in the absence of other clinical evidence of TB infection is not uncommon and may be due to infection from some nontuberculosis mycobacteria (M. kansasii, M szulgai, or M. marinum). Clinical research suggests a QuantiFERON-TB Gold Plus interpretation of Positive with TB1 minus Nil and TB2 minus Nil values <1.00 may represent a false-positive in the absence of other clinical evidence, especially in low-risk individuals. An overall indeterminate result is inconclusive and should not be viewed as low or intermediate infection. Indeterminate results can be caused by low Mitogen or high Nil values. Low mitogen results may occur due to a low lymphocyte count, reduced lymphocyte activity, inability of the patient's lymphocytes to generate IFN-gamma, or inappropriate handling of the tubes. High values for the Nil tube may occur due to heterophile antibody effects of nonspecific, circulating IFN-gamma in the patient's blood sample. When clinically indicated, indeterminate tests should be repeated on a new specimen. Testing Performed: [address] [address] Release to patient->Automatic RUBELLA ANTIBODY, IGGon RUBELLA ANTIBODY, IGG Positive Invalid Interpretation Code [facility] Comment on above: Order Comment: Sampl e is considered positive for IgG antibodies to rubella virus. Release to patient->Automatic Rubella IgG Antibodyon 07-24 Rubella virus IgG Qn (S) Positive [facility] Sample is considered positive for IgG antibodies to rubella virus. [facility] Network Engineer Cytology Reporton 2023 Network Engineer Cytology Report . Pathology Reports Accession: Collected Date/Time: Received Date/Time: Pathologist: [id number] 06/24/2024 16:19 EDT 06/24/2024 18:00 EDT Network Engineer Cytology Report SPECIMEN: Specimen Description: Liquid Prep w/ HPV Specimen: Cervical/Endocervica l Screening or Diagnostic: Screening RELEVANT HISTORY: LMP: 05/29/2024 Other clinical information: Hx Abnormal Pap/Cytology SPECIMEN ADEQUACY: SATISFACTORY FOR EVALUATION Endocervical/Transfo rmational zone component present INTERPRETATION/RESUL TS: NEGATIVE FOR INTRAEPITHELIAL LESION OR MALIGNANCY HIGH RISK HPV TESTING: Event Code Result HPV Interp See Interp HPVN HPV Interp Text: High Risk HPV Typing: NEGATIVE HPV types 16, 18, 31, 33, 35, 39, 45, 51, 52, 56, 58, 59, 66 and 68 DNA were undetectable or below the pre-set threshold. The coni High-Risk HPV DNA Test is not intended for use as a screening device for Pap normal women under age 30 and is not intended to substitute for regular Pap screening. The coni High-Risk HPV DNA Test is designed to augment existing methods for the detection of cervical disease and should be used in conjunction with clinical information derived from other diagnostic and screening tests, physical examinations and full medical history in accordance with appropriate patient management procedures. NOTE: A negative result does not preclude the presence of HPV infection because results depend on adequate specimen collection, absence of inhibitors and sufficient DNA to be detected. As of: 07/01/24 10:12 EDT COMMENT: This Pap Test was successfully processed and evaluated with the assistance of the [employer] Thin[employer] Test Imaging System. Pathology Reports Accession: Collected Date/Time: Received Date/Time: Pathologist: [id number] 06/24/2024 16:19 EDT 06/24/2024 18:00 EDT Electronically Signed by Pathology report verified by [facility] Screened by: [place] Electronically signed by Lorelei DOW (ASCP) Sign-Out Date: 07/01/2024 10:13 Performing Lab: [facility], [address] [place] [address] Pathology Dept Disclaimer The Pap test is a screening test for cervical cancer. As evidenced by published data, it is subject to both inherent false negative and false positive results. Your patient's results should be interpreted in context with pertinent clinical history including gynecological examination. Normal [facility] HPVon 06-29-2024 HPV Interp Normal See Interp HPVN [facility] Comment on above: Order Comment: Order placed by AP_HPV_ORDER rule from [id number] Result Comment: High Risk HPV Typing: NEGATIVE HPV types 16, 18, 31, 33, 35, 39, 45, 51, 52, 56, 58, 59, 66 and 68 DNA were undetectable or below the pre-set threshold. The coni High-Risk HPV DNA Test is not intended for use as a screening device for Pap normal women under age 30 and is not intended to substitute for regular Pap screening. The coni High-Risk HPV DNA Test is designed to augment existing methods for the detection of cervical disease and should be used in conjunction with clinical information derived from other diagnostic and screening tests, physical examinations and full medical history in accordance with appropriate patient management procedures. NOTE: A negative result does not preclude the presence of HPV infection because results depend on adequate specimen collection, absence of inhibitors and sufficient DNA to be detected. See Interp HPVN Performed By: #### H PV #### [address] [address] HPV Source Cervix Normal [facility] Comment on above: Order Comment: Order placed by AP_HPV_ORDER rule from [id number] Performed By: #### H PV #### [address] [address] .Auto Diffon 06-24-2024 Basophil, Absolute 0.0 10 3/mcL Normal 0.0-0.2 [facility] Comment on above: Performed By: #### A SHILPA, CMP, VIDH, FT3, CBC, FT4, ADIFF, TSH, GFR #### [address] [address] Basophils/100 WBC (Bld) 0.6 % Normal 0.0-2.5 [facility] Comment on above: Performed By: #### A SHILPA, CMP, VIDH, FT3, CBC, FT4, ADIFF, TSH, GFR #### [address] [address] Eosinophil, Absolute 0.1 10 3/mcL Normal 0.0-0.7 [facility] Comment on above: Performed By: #### A SHILPA, CMP, VIDH, FT3, CBC, FT4, ADIFF, TSH, GFR #### [address] [address] Eosinophils/100 WBC (Bld) 2.4 % Normal 0.0-7.0 [facility] Comment on above: Performed By: #### A SHILPA, CMP, VIDH, FT3, CBC, FT4, ADIFF, TSH, GFR #### [address] [address] Lymphocyte, Absolute 1.5 10 3/mcL Normal 0.9-4.3 [facility] Comment on above: Performed By: #### A SHILPA, CMP, VIDH, FT3, CBC, FT4, ADIFF, TSH, GFR #### [address] [address] Lymphocytes/100 WBC (Bld) 33.7 % Normal 20.0-40.0 [facility] Comment on above: Performed By: #### A SHILPA, CMP, VIDH, FT3, CBC, FT4, ADIFF, TSH, GFR #### [address] [address] Monocyte, Absolute 0.3 10 3/mcL Normal 0.1-1.4 [facility] Comment on above: Performed By: #### A SHILPA, CMP, VIDH, FT3, CBC, FT4, ADIFF, TSH, GFR #### [address] [address] Monocytes/100 WBC (Bld) 7.0 % Normal 2.0-13.0 [facility] Comment on above: Performed By: #### A SHILPA, CMP, VIDH, FT3, CBC, FT4, ADIFF, TSH, GFR #### [address] [address] Neutrophils/100 WBC (Bld) 56.3 % Normal 50.0-75.0 [facility] Comment on above: Performed By: #### A SHILPA, CMP, VIDH, FT3, CBC, FT4, ADIFF, TSH, GFR #### [address] [address] .GFRon 06-24-2024 GFR 109 ml/min/1.73sqm Normal [facility] Comment on above: Result Comment: GFR Population mean for , Non- Americans Ages 20-29 = 116 mL/min/1.73 sq.m. Ages 30-39 = 107 mL/min/1.73 sq.m. Ages 40-49 = 99 mL/min/1.73 sq.m. Ages 50-59 = 93 mL/min/1.73 sq.m. Ages 60-69 = 85 mL/min/1.73 sq.m. Ages 70+ = 75 mL/min/1.73 sq.m. Chronic Kidney Disease: Less than 60 mL/min/1.73 square meters End Stage Renal Disease: Less than 15 mL/min/1.73 square meters Performed By: #### H PV #### [place] [id number] GFR Non- 90 ml/min/1.73sqm Normal [facility] Comment on above: Result Comment: GFR Population mean for , Non- Americans Ages 20-29 = 116 mL/min/1.73 sq.m. Ages 30-39 = 107 mL/min/1.73 sq.m. Ages 40-49 = 99 mL/min/1.73 sq.m. Ages 50-59 = 93 mL/min/1.73 sq.m. Ages 60-69 = 85 mL/min/1.73 sq.m. Ages 70+ = 75 mL/min/1.73 sq.m. Chronic Kidney Disease: Less than 60 mL/min/1.73 square meters End Stage Renal Disease: Less than 15 mL/min/1.73 square meters Performed By: #### H PV #### [address] [address] .NEUABSon 06-24-2024 Neutrophil, Absolute 2.6 10 3/mcL Normal 2.3-8.1 [facility] Comment on above: Performed By: #### A SHILPA, CMP, VIDH, FT3, CBC, FT4, ADIFF, TSH, GFR #### [address] [address] CBCon 06-24-2024 Erythrocyte distribution width (RBC) [Ratio] 13.3 % Normal 11.5-15.5 [facility] Comment on above: Performed By: #### A SHILPA, CMP, VIDH, FT3, CBC, FT4, ADIFF, TSH, GFR #### [address] [address] Hematocrit (Bld) [Volume fraction] 40.4 % Normal 34.0-46.0 [facility] Comment on above: Performed By: #### A SHILPA, CMP, VIDH, FT3, CBC, FT4, ADIFF, TSH, GFR #### [address] [address] Hgb 13.6 G/dL Normal 12.0-16.0 [facility] Comment on above: Performed By: #### A SHILPA, CMP, VIDH, FT3, CBC, FT4, ADIFF, TSH, GFR #### [address] [address] MCH (RBC) [Entitic mass] 30.1 pg Normal 27.0-33.0 [facility] Comment on above: Performed By: #### A SHILPA, CMP, VIDH, FT3, CBC, FT4, ADIFF, TSH, GFR #### [place] [address] MCHC 33.8 G/dL Normal 32.0-36.0 [facility] Comment on above: Performed By: #### A SHILPA, CMP, VIDH, FT3, CBC, FT4, ADIFF, TSH, GFR #### [place] [address] MCV (RBC) [Entitic vol] 89.2 fL Normal 80.0-99.0 [facility] Comment on above: Performed By: #### A SHILPA, CMP, VIDH, FT3, CBC, FT4, ADIFF, TSH, GFR #### [place] [address] Platelet 227 10 3/mcL Normal 150-450 [facility] Comment on above: Performed By: #### A SHILPA, CMP, VIDH, FT3, CBC, FT4, ADIFF, TSH, GFR #### [place] [address] Platelet mean volume (Bld) [Entitic vol] 7.0 fL Normal 6.6-10.5 [facility] Comment on above: Performed By: #### A SHILPA, CMP, VIDH, FT3, CBC, FT4, ADIFF, TSH, GFR #### [place] [address] RBC 4.53 10 6/mcL Normal 4.10-5.30 [facility] Comment on above: Performed By: #### A SHILPA, CMP, VIDH, FT3, CBC, FT4, ADIFF, TSH, GFR #### [address] [address] WBC 4.6 10 3/mcL Normal 4.5-10.8 [facility] Comment on above: Performed By: #### A SHILPA, CMP, VIDH, FT3, CBC, FT4, ADIFF, TSH, GFR #### [address] [address] CMPon 06-24-2024 Albumin Level 4.2 G/dL Normal 3.5-5.0 [facility] Comment on above: Performed By: #### A SHILPA, CMP, VIDH, FT3, CBC, FT4, ADIFF, TSH, GFR #### [address] [address] Albumin/Globulin [Mass ratio] 1.5 {ratio} Normal 1.1-2.5 [facility] Comment on above: Performed By: #### A SHILPA, CMP, VIDH, FT3, CBC, FT4, ADIFF, TSH, GFR #### [address] [address] ALP [Catalytic activity/Vol] 36 U/L Low 40-135 [facility] Comment on above: Performed By: #### A SHILPA, CMP, VIDH, FT3, CBC, FT4, ADIFF, TSH, GFR #### [address] [address] ALT [Catalytic activity/Vol] 55 U/L Normal 14-59 [facility] Comment on above: Performed By: #### A SHILPA, CMP, VIDH, FT3, CBC, FT4, ADIFF, TSH, GFR #### [address] [address] AST [Catalytic activity/Vol] 29 U/L Normal 10-40 [facility] Comment on above: Performed By: #### A SHILPA, CMP, VIDH, FT3, CBC, FT4, ADIFF, TSH, GFR #### [address] [address] Bili Total 0.2 mg/dL Normal 0.2-1.0 [facility] Comment on above: Result Comment: Use of this assay is not recommended for patients undergoing treatment with eltrombopag due to the potential for falsely elevated results. Performed By: #### A SHILPA, CMP, VIDH, FT3, CBC, FT4, ADIFF, TSH, GFR #### [place] [address] BUN/Creatinine Ratio 19 ratio Normal 7-27 [facility] Comment on above: Performed By: #### A SHILPA, CMP, VIDH, FT3, CBC, FT4, ADIFF, TSH, GFR #### [place] [address] Calcium [Mass/Vol] 9.1 mg/dL Normal 8.4-10.2 [facility] Comment on above: Performed By: #### A SHILPA, CMP, VIDH, FT3, CBC, FT4, ADIFF, TSH, GFR #### [place] [address] Chloride [Moles/Vol] 102 mmol/L Normal 98-107 [facility] Comment on above: Performed By: #### A SHILPA, CMP, VIDH, FT3, CBC, FT4, ADIFF, TSH, GFR #### [place] [address] CO2 [Moles/Vol] 26 mmol/L Normal 22-29 [facility] Comment on above: Performed By: #### A SHILPA, CMP, VIDH, FT3, CBC, FT4, ADIFF, TSH, GFR #### [place] [address] Creatinine [Mass/Vol] 0.72 mg/dL Normal 0.55-1.02 [facility] Comment on above: Result Comment: Test ing performed on Siemens Dimension EXL analyzer using a modified kinetic Jez technique. Performed By: #### A SHILPA, CMP, VIDH, FT3, CBC, FT4, ADIFF, TSH, GFR #### [place] [address] Electrolyte Balance 10.0 mEq/L Normal 4.0-15.0 [facility] Comment on above: Performed By: #### A SHILPA, CMP, VIDH, FT3, CBC, FT4, ADIFF, TSH, GFR #### [address] [address] Globulin 2.8 G/dL Normal [facility] Comment on above: Performed By: #### A SHILPA, CMP, VIDH, FT3, CBC, FT4, ADIFF, TSH, GFR #### [address] [address] Glucose [Mass/Vol] 87 mg/dL Normal 70-105 [facility] Comment on above: Performed By: #### A SHILPA, CMP, VIDH, FT3, CBC, FT4, ADIFF, TSH, GFR #### [address] [address] Potassium [Moles/Vol] 3.8 mmol/L Normal 3.5-5.1 [facility] Comment on above: Performed By: #### A SHILPA, CMP, VIDH, FT3, CBC, FT4, ADIFF, TSH, GFR #### [address] [address] Sodium [Moles/Vol] 138 mmol/L Normal 136-145 [facility] Comment on above: Performed By: #### A SHILPA, CMP, VIDH, FT3, CBC, FT4, ADIFF, TSH, GFR #### [address] [address] Total Protein 7.0 G/dL Normal 6.4-8.2 [facility] Comment on above: Performed By: #### A SHILPA, CMP, VIDH, FT3, CBC, FT4, ADIFF, TSH, GFR #### [address] [address] Urea nitrogen [Mass/Vol] 14 mg/dL Normal 7-18 [facility] Comment on above: Performed By: #### A SHILPA, CMP, VIDH, FT3, CBC, FT4, ADIFF, TSH, GFR #### [address] [address] FT3on 06-24-2024 Free T3 [Mass/Vol] 3.55 pg/mL Normal 2.30-4.00 [facility] Comment on above: Performed By: #### A SHILPA, CMP, VIDH, FT3, CBC, FT4, ADIFF, TSH, GFR #### [address] [address] FT4on 06-24-2024 Free T4 [Mass/Vol] 0.78 ng/dL Normal 0.76-1.46 [facility] Comment on above: Performed By: #### A SHILPA, CMP, VIDH, FT3, CBC, FT4, ADIFF, TSH, GFR #### [address] [address] LABORATORYOrdered By: SYSTEM SYSTEM on 06-24-2024 25-hydroxyvitamin D3 [Mass/Vol] 27.8 ng/mL Invalid Interpretation Code AO ADM SS Comment on above: Interpretive Data: I nterpretive Values Based on Total 25(OH) Vitamin D: Deficient <20 ng/mL Insufficient 20 - <30 ng/mL Sufficient 30-100 ng/mL Albumin BCP dye [Mass/Vol] 4.2 G/dL Normal 3.5 - 5.0 G/dL AO ADM SS Albumin/Globulin [Mass ratio] 1.5 {ratio} Normal 1.1 - 2.5 ratio AO ADM SS ALP [Catalytic activity/Vol] 36 U/L Low 40 - 135 U/L AO ADM SS ALT With P-5'-P [Catalytic activity/Vol] 55 U/L Normal 14 - 59 U/L AO ADM SS AST With P-5'-P [Catalytic activity/Vol] 29 U/L Normal 10 - 40 U/L AO ADM SS Basophils (Bld) [#/Vol] 0.0 103/mcL Normal 0.0 - 0.2 10^3/mcL AO Workflow SS Basophils/100 WBC (Bld) 0.6 % Normal 0.0 - 2.5 % AO Workflow SS Bilirubin [Mass/Vol] 0.2 mg/dL Normal 0.2 - 1 .0 mg/dL AO ADM SS Comment on above: Interpretive Data: U se of this assay is not recommended for patients undergoing treatment with eltrombopag due to the potential for falsely elevated results. Calcium [Mass/Vol] 9.1 mg/dL Normal 8.4 - 10. 2 mg/dL AO ADM SS Chloride [Moles/Vol] 102 mmol/L Normal 98 - 10 7 mmol/L AO ADM SS CO2 [Moles/Vol] 26 mmol/L Normal 22 - 29 mmol/L AO ADM SS Creatinine [Mass/Vol] 0.72 mg/dL Normal 0.55 - 1.02 mg/dL AO ADM SS Comment on above: Interpretive Data: T esting performed on Siemens Dimension EXL analyzer using a modified kinetic Jez technique. Electrolyte Balance 10.0 mEq/L Normal 4.0 - 15 .0 mEq/L AO ADM SS Eosinophil, Absolute 0.1 103/mcL Normal 0.0 - 0 .7 10^3/mcL AO Workflow SS Eosinophils/100 WBC (Bld) 2.4 % Normal 0.0 - 7.0 % AO Workflow SS Erythrocyte distribution width (RBC) [Ratio] 13.3 % Normal 11.5 - 15.5 % AO Workflow SS Free T3 [Mass/Vol] 3.55 pg/mL Normal 2.30 - 4. 00 pg/mL AO ADM SS Free T4 [Mass/Vol] 0.78 ng/dL Normal 0.76 - 1. 46 ng/dL AO ADM SS GFR/1.73 sq M.predicted among blacks MDRD (S/P/Bld) [Vol rate/Area] 109 ml/min/1.73sqm Invalid Interpretation Code AO Chemistry S Comment on above: Interpretive Data: GFR Population mean for , Non- Americans Ages 20-29 = 116 mL/min/1.73 sq.m. Ages 30-39 = 107 mL/min/1.73 sq.m. Ages 40-49 = 99 mL/min/1.73 sq.m. Ages 50-59 = 93 mL/min/1.73 sq.m. Ages 60-69 = 85 mL/min/1.73 sq.m. Ages 70+ = 75 mL/min/1.73 sq.m. Chronic Kidney Disease: Less than 60 mL/min/1.73 square meters End Stage Renal Disease: Less than 15 mL/min/1.73 square meters GFR/1.73 sq M.predicted among non-blacks MDRD (S/P/Bld) [Vol rate/Area] 90 ml/min/1.73sqm Invalid Interpretation Code AO Chemistry S Comment on above: Interpretive Data: GFR Population mean for , Non- Americans Ages 20-29 = 116 mL/min/1.73 sq.m. Ages 30-39 = 107 mL/min/1.73 sq.m. Ages 40-49 = 99 mL/min/1.73 sq.m. Ages 50-59 = 93 mL/min/1.73 sq.m. Ages 60-69 = 85 mL/min/1.73 sq.m. Ages 70+ = 75 mL/min/1.73 sq.m. Chronic Kidney Disease: Less than 60 mL/min/1.73 square meters End Stage Renal Disease: Less than 15 mL/min/1.73 square meters Globulin 2.8 G/dL Invalid Interpretation Code AO ADM SS Glucose [Mass/Vol] 87 mg/dL Normal 70 - 105 mg/dL AO ADM SS Hematocrit (Bld) [Volume fraction] 40.4 % Normal 34.0 - 46.0 % AO Workflow SS Hemoglobin (Bld) [Mass/Vol] 13.6 G/dL Normal 12.0 - 16.0 G/dL AO Workflow SS Lymphocytes (Bld) [#/Vol] 1.5 103/mcL Normal 0.9 - 4.3 10^3/mcL AO Workflow SS Lymphocytes/100 WBC (Bld) 33.7 % Normal 20.0 - 40.0 % AO Workflow SS MCH (RBC) [Entitic mass] 30.1 pg Normal 27. 0 - 33.0 pg AO Workflow SS MCHC 33.8 G/dL Normal 32.0 - 36.0 G/dL AO Workflow SS MCV (RBC) [Entitic vol] 89.2 fL Normal 80.0 - 99.0 fL AO Workflow SS Monocytes (Bld) [#/Vol] 0.3 103/mcL Normal 0.1 - 1.4 10^3/mcL AO Workflow SS Monocytes/100 WBC (Bld) 7.0 % Normal 2.0 - 13.0 % AO Workflow SS Neutrophils (Bld) [#/Vol] 2.6 103/mcL Normal 2.3 - 8.1 10^3/mcL AO Workflow SS Neutrophils/100 WBC (Bld) 56.3 % Normal 50.0 - 75.0 % AO Workflow SS Platelet mean volume (Bld) [Entitic vol] 7.0 fL Normal 6.6 - 10.5 fL AO Workflow SS Platelets (Bld) [#/Vol] 227 103/mcL Normal 150 - 450 10^3/mcL AO Workflow SS Potassium [Moles/Vol] 3.8 mmol/L Normal 3.5 - 5.1 mmol/L AO ADM SS Protein [Mass/Vol] 7.0 G/dL Normal 6.4 - 8.2 G/dL AO ADM SS RBC (Bld) [#/Vol] 4.53 106/mcL Normal 4.10 - 5.3 0 10^6/mcL AO Workflow SS Sodium [Moles/Vol] 138 mmol/L Normal 136 - 145 mmol/L AO ADM SS TSH Qn 1.75 m[IU]/L Normal 0.36 - 3.74 mcIU/mL AO ADM SS Urea nitrogen [Mass/Vol] 14 mg/dL Normal 7 - 18 mg/d L AO ADM SS Urea nitrogen/Creatinine [Mass ratio] 19 ratio Normal 7 - 27 ratio AO ADM SS WBC (Bld) [#/Vol] 4.6 103/mcL Normal 4.5 - 10.8 10^3/mcL AO Workflow SS TSHon 06-24-2024 TSH Qn 1.75 m[IU]/L Normal 0.36-3.74 [facility] Comment on above: Performed By: #### A SHILPA, CMP, VIDH, FT3, CBC, FT4, ADIFF, TSH, GFR #### [address] [address] VIDHon 06-24-2024 Vit. D 25-Hydroxy 27.8 ng/mL Normal [facility] Comment on above: Result Comment: Inte rpretive Values Based on Total 25(OH) Vitamin D: Deficient <20 ng/mL Insufficient 20 - <30 ng/mL Sufficient 30-100 ng/mL Performed By: #### A SHILPA, CMP, VIDH, FT3, CBC, FT4, ADIFF, TSH, GFR #### [address] [address] EMERGENCY REPORTon 8 [facility] RE[facility] NAME ACCOUNT SEX AGE ADMIT DISCHARGE PT MED. RECORD# NUMBER DATE DATE TYPE LACIE RAMOS [id number] F 32 07/11/18 07/11/18 3 [id number] ROOM: ER DATE OF : 1985 DICTATING PHYSICIAN: Yessi Jones CHIEF COMPLAINT/HISTORY OF PRESENT ILLNESS: Patient [...] condition. Page 1 of 2 [facility]AC[facility] Emergency Room Report Dictated By: Yessi Jones DO 07/11/18 15:04 JOB #: [id number] Transcribed By: chad 07/11/18 20:53 Electronically signed by: SOHAIL Jones D.O. 07/16/18 08:12 Page 2 of 2 LACIE RAMOS A Emergency Room Report Normal [facility] CBCon 07-11-2018 Basophils Auto #/vol (Bld) 0.00 x10EE3/UL Normal 0.00 - 0.10 [facility] Comment on above: Performed By: #### 2 63628 ####[facility],[address] [place] [address] Basophils/100 WBC Auto (Bld) 0.1 % Normal 0.0 - 2.0 [facility] Comment on above: Performed By: #### 2 14783 ####[facility],[address] [place] [address] CBC Normal [facility] Comment on above: Result Comment: CBC- COMPLETE BLOOD COUNT Performed By: #### 2 95619 ####[facility],[address] [place], [place] [address] Eosinophils Auto #/vol (Bld) 0.00 x10EE3/UL Normal 0.00 - 0.50 [facility] Comment on above: Performed By: #### 2 69653 ####[facility],[address] [place] [address] Eosinophils/100 WBC Auto (Bld) 0.0 % Normal 0.0 - 7.0 [facility] Comment on above: Performed By: #### 2 15255 ####[facility],[address] [place] [address] Erythrocyte distribution width Auto Ratio (RBC) 12.7 % Normal 12.0 - 15.6 [facility] Comment on above: Performed By: #### 2 78598 ####[facility],[address] [place], [place] [address] Hematocrit Auto Volume Fraction (Bld) 39.4 % Normal 34.0 - 46.0 [facility] Comment on above: Performed By: #### 2 65670 ####[facility],[address] [place] [address] Hemoglobin mass conc (Bld) 14.0 g/dL Normal 12.0 - 16.0 [facility] Comment on above: Performed By: #### 2 21176 ####[facility],[address] [place], [place] [address] Lymphocytes Auto #/vol (Bld) 0.40 x10EE3/UL Low 0.80 - 2.80 [facility] Comment on above: Performed By: #### 2 91265 ####[facility],[address] [place] [address] Lymphocytes/100 WBC Auto (Bld) 4.4 % Low 20.0 - 45.0 [facility] Comment on above: Performed By: #### 2 31518 ####[facility],[address] [place] [address] MANUAL DIFF N/A Normal [facility] Comment on above: Performed By: #### 2 53235 ####[facility],[address] [place] [address] MCH Auto Entitic mass (RBC) 30 pg Normal 27 - 33 [facility] Comment on above: Performed By: #### 2 97659 ####[facility],[address] [place] [address] MCHC Auto mass conc (RBC) 36 X10 3 Normal 32 - 36 [facility] Comment on above: Performed By: #### 2 39492 ####[facility],[address] [place] [address] MCV Auto Entitic volume (RBC) 85 fL Normal 80 - 99 [facility] Comment on above: Performed By: #### 2 19868 ####[facility],[address] [place] [address] Monocytes Auto #/vol (Bld) 0.30 x10EE3/UL Normal 0.20 - 1.00 [facility] Comment on above: Performed By: #### 2 30645 ####[facility],[address] [place] [address] MONOS % 3.1 % Normal 0.0 - 10.0 [facility] Comment on above: Performed By: #### 2 51402 ####[facility],[address] [place] [address] Morphology Interp Leland (Bld) N/A Normal [facility] Comment on above: Result Comment: {CD] Performed By: #### 2 38780 ####[address] [address] Neutrophils Auto #/vol (Bld) 7.50 x10EE3/UL High 1.50 - 7.10 [facility] Comment on above: Performed By: #### 2 92870 ####[address] [address] Neutrophils/100 WBC Auto (Bld) 92.4 % High 46.0 - 76.0 [facility] Comment on above: Performed By: #### 2 20858 ####[address] [address] Platelet mean volume Auto Entitic volume (Bld) 6.9 fL Normal 6.6 - 10.5 [facility] Comment on above: Result Comment: AUTO MATED DIFFERENTIAL Performed By: #### 2 49906 ####[address] [address] Platelets Auto #/vol (Bld) 154 x10EE3/UL Normal 150 - 450 [facility] Comment on above: Performed By: #### 2 01091 ####[address] [address] RBC Auto #/vol (Bld) 4.65 x 10EE6/UL Normal 4.10 - 5.3 0 [facility] Comment on above: Performed By: #### 2 78993 ####[address],[place] [address] WBC Auto #/vol (Bld) 8.1 x 10EE3/UL Normal 4.5 - 10.8 [facility] Comment on above: Performed By: #### 2 16948 ####[facility],[address] [place], [place] [id number] CMP with eGFRon 07-11-2018 Age Reported 32 years Normal [facility] Comment on above: Performed By: #### 2 40602 ####[facility],[address] [place] [address] Albumin mass conc 4.3 g/dL Normal 3.4 - 4.8 [facility] Comment on above: Performed By: #### 2 47854 ####[facility],[address] [place] [address] Albumin/Globulin mass ratio 1.9 {ratio} High 0.9 - 1.6 [facility] Comment on above: Performed By: #### 2 32923 ####[facility],[address] [place], [place] [id number] ALK PHOS 18 U/L Low 38 - 126 [facility] Comment on above: Performed By: #### 2 12506 ####[facility],[address] [place], [place] [id number] ALT/SGPT 15 U/L Normal 8 - 35 [facility] Comment on above: Performed By: #### 2 35212 ####[facility],[address] [place], [place] [id number] Anion gap 3 molar conc 14 mmol/L Normal 10 - 20 [facility] Comment on above: Performed By: #### 2 [id number] ####[facility],[address] [place] [id number] AST/SGOT 18 U/L Normal 13 - 39 [facility] Comment on above: Performed By: #### 2 [id number] ####[facility],[address] [place], [place] [id number] B/C RATIO 27 ratio Normal 0 - 30 [facility] Comment on above: Performed By: #### 2 [id number] ####[facility],[address] [place] [id number] Bilirubin mass conc 0.7 mg/dL Normal 0.0 - 1.5 [facility] Comment on above: Performed By: #### 2 [id number] ####[facility],[address] [place] [id number] Calcium mass conc 9.0 mg/dL Normal 8.6 - 10.2 [facility] [facility] Comment on above: Performed By: #### 2 [id number] ####[facility],[address] [place], [place] [id number] Chloride molar conc 102 mmol/L Normal 98 - 107 [facility] Comment on above: Performed By: #### 2 [id number] ####[facility],[address] [place] [address]192 CO2 molar conc 23.6 mmol/L Normal 21.0 - 31.0 [facility] Comment on above: Performed By: #### 2 79945 ####[facility],[address] [place] [address]40 Creatinine mass conc 0.7 mg/dL Normal 0.6 - 1.2 [facility] Comment on above: Performed By: #### 2 69970 ####[facility],[address] [place] [address] 20078 GFR/1.73 sq M predicted among non-blacks MDRD vol rate/area (S/P/Bld) Normal [facility] Comment on above: Result Comment: COMP REHENSIVE METABOLIC PANEL Performed By: #### 2 17103 ####[facility],[address] [place] [address] 23418 GFR/1.73 sq M predicted among non-blacks MDRD vol rate/area (S/P/Bld) mL/min/{1.73_m2} Normal 60 - 999 [facility] Comment on above: Performed By: #### 2 63378 ####[facility],[address] [place] [address] Result Comment: ACCO RDING TO THE NATIONAL KIDNEY DISEASE EDUCATION PROGRAM(NKDE), A NORMAL eGFRIS A VALUE GREATER THAN OR EQUAL TO 60 ML/MIN/1.73 SQ METERS.CHRONIC KIDNEY DISEASE: <60mL/MIN/1.73 SQ METERSKIDNEY FAILURE: <15mL/MIN/1.73 SQ METERSTHIS TEST SHOULD ONLY BE USED FOR PATIENTS 18 YEARS OF AGE AND OLDER. Globulin Calculated mass conc (S) 2.3 g/dL Normal 1.5 - 3.8 [facility] Comment on above: Performed By: #### 2 73698 ####[facility],[address] [place] [address] Glucose mass conc 99 mg/dL Normal 74 - 106 [facility] Comment on above: Performed By: #### 2 94040 ####[facility],[address] [place] [address] 32284 Potassium molar conc 3.5 mmol/L Normal 3.5 - 5.1 [facility] Comment on above: Performed By: #### 2 52843 ####[facility],[address] [place], [place] [id number] Protein mass conc 6.6 g/dL Normal 6.4 - 8.3 [facility] Comment on above: Performed By: #### 2 52204 ####[facility],[address] [place] [address] 39623 Sodium molar conc 136 mmol/L Normal 136 - 145 [facility] Comment on above: Performed By: #### 2 69601 ####[facility],[address] [place] [address]645 Urea nitrogen mass conc 19 mg/dL Normal 6 - [address] [facility] Comment on above: Performed By: #### 2 25937 ####[facility],[address] [place] [address] ABDOMEN/PELVIS Won 2017 CT ABDOMEN/PELVIS [address] [address] Patient: LACIE RAMOS Phone#: : 1985 Age: 32 Gender: F Pt. Type: ER Account: [id number] Location: [facility] Ordering: YESSI JONES Exam Date: 07/11/2018/13:43 Family Phys: CODI SIMPSON Charge Code: 067170 Physician: Bell Order #: [id number] DLP Dose#: PROCEDURE: CT ABDOMEN/PELVIS WITH CONTRAST [...] 32 Gender: F Pt. Type: ER Account: [id number] Location: 052 Ordering: YESSI JONES Exam Date: 07/11/2018/13:43 Family Phys: CODI SIMPSON Charge Code: [id number] Physician: Bell Order #: [id number] DLP Dose#: PELVIC ORGANS: The uterus is [...] Angle Cheek MD on 07/11/2018 at 14:16 Normal [facility] LIPASEon 07-11-2018 Lipase enzyme act/vol 14.0 U/L Low 18.0 - 51.0 [facility] Comment on above: Performed By: #### 2 94806 ####[facility],[address] [place] [address] URINEon 07-11-2018 EXTERNAL QC DONE? YES Normal [facility] Comment on above: Performed By: #### 2 20267 ####[facility],[address] [place] [address] INTERNAL QC PASS Normal [facility] Comment on above: Performed By: #### 2 32769 ####[facility],[address] [place] [address] UR Negative Normal NEGATIVE [facility] Comment on above: Performed By: #### 2 45923 ####[facility],[address] [place], [place] [address] URINALYSISon 07-11-2018 Bilirubin Negative Normal NORMAL: NEGATIVE [facility] Comment on above: Performed By: #### 2 62478 ####[facility],[address] [place] [address] Blood Negative Normal NORMAL: NEGATIVE [facility] Comment on above: Performed By: #### 2 65409 ####[facility],[address] [place] [address],[facility] [address] Clarity clear Normal NORMAL: CLEAR [facility] Comment on above: Performed By: #### 2 28388 ####[facility],[address] [place] [address],[facility] [address] Color sonny Normal NORMAL: YELLOW [facility] Comment on above: Performed By: #### 2 64482 ####[facility],[address] [place] [address],[facility] [address] Glucose NORM Normal NORMAL: NORMAL [facility] Comment on above: Performed By: #### 2 90764 ####[facility],[address] [place] [address],[facility] [address] Ketone 150 Abnormal NORMAL: NEGATIVE [facility] Comment on above: Performed By: #### 2 84580 ####[facility],[address] [place] [address],[facility] [address] Leukocytes Negative Normal NORMAL: NEGATIVE [facility] Comment on above: Performed By: #### 2 40942 ####[facility],[address] [place] [address],[facility] [address] Microscopic NOT INDICATED Normal [facility] Comment on above: Performed By: #### 2 48381 ####[facility],[address] [place] [address],[facility] [address] Nitrite Negative Normal NORMAL: NEGATIVE [facility] Comment on above: Performed By: #### 2 96968 ####[facility],[address] [place] [address],[facility] [address] ph 6 Normal NORMAL: 5.0-8.0 [facility] Comment on above: Performed By: #### 2 18564 ####[facility],[address] [place] [address],[facility] [address] Protein mass conc Negative Normal NORMAL: NEGATIVE [facility] Comment on above: Performed By: #### 2 92376 ####[facility],[address] [place] [address] Sp Cascade 1.020 Normal NORMAL: 1.010-1.030 [facility] Comment on above: Performed By: #### 2 39793 ####[facility],[address] [place] [address] Specimen type UNSPECIFIED Normal [facility] Comment on above: Performed By: #### 2 46440 ####[facility],[address] [place] [address] Urobilinog NORM Normal NORMAL: NORMAL [facility] Comment on above: Performed By: #### 2 08601 ####[facility],[address] [place] [address] Vital Signs Date Time Vital Sign Value Performing Clinician Faci lity 02-19-2025 08:27-0400 Body height 157.[address] Jamie Porras MD Work Phone: 6(129)[phone] [place] [address] 02-19-2025 08:27-0400 Body mass index (BMI) [Ratio] 27.1 kg/m2 Dr. Jamie Porras MD Work Phone: 1(915)611-165634 [place] [address] 02-19-2025 08:27-0400 Body temperature 98.2 [degF] Dr. Jamie Porras MD Work Phone: 2(834)[phone] [place] [address] 02-19-2025 08:27-0400 Body weight 67.[address] Jamie Porras MD Work Phone: 9(324)789-299134 [place] [address] 02-19-2025 08:27-0400 Diastolic blood pressure 72 mm[Hg] Dr. Jamie Porras MD Work Phone: 5(281)071-336334 [place] [address] 02-19-2025 08:27-0400 Heart rate 95 /min Dr. Jamie Porras MD Work Phone: 6(627)768-198983 [place] [address] 02-19-2025 08:27-0400 Respiratory rate 15 /min Dr. Jamie Porras MD Work Phone: 9(115)252-110583 [place] [address] 02-19-2025 08:27-0400 SaO2% (BldA) [Mass fraction] 97 % Dr. Jamie Porras MD Work Phone: [facility] 02-19-2025 08:27-0400 Systolic blood pressure 105 mm[Hg] Dr. Jamie Porras MD Work Phone: [facility] Encounters Encounter Date Encounter Type Care Provider Facility Start: 04-21-2025 ambulatory Jamie Porras Facility:[facility] Start: 03-18-2025 End: 03-18-[address] Jamie Porras MD Work Phone: -Laboratory [facility] Start: 03-18-2025 End: 03-18-[address] Jamie Porras MD -Laboratory [facility] Start: 03-18-2025 End: 03-18-2025 ambulatory Jamie Porras Facility:[facility] Start: 02-19-2025 End: 02-19-[address] Koffi Lindsay MD -[facility] Work Phone: Start: 02-19-2025 End: 02-19-[address] Jamie Porras MD Work Phone: [facility] Work Phone: Start: 12-11-2024 Encounter for genera l adult medical examination without abnormal findings Jamie [facility] Start: 12-04-2024 End: 12-04-[address] Jamie Porras MD Work Phone: [facility] Work Phone: Start: 12-04-2024 End: 12-04-[address] Jamie Porras MD -Laboratory, [facility] Start: 12-04-2024 End: 12-04-2024 ambulatory Jamie Porras Facility:[facility] Start: 07-24-2024 End: 07-24-2024 ambulatory JOHANA NICHOLSON [facility] Start: 07-24-2024 End: 07-24-2024 Subsequent hospital visit by physician Johana Nicholson [employer]URAL G[employer] TECHNICIAN-[employer]ER OPERATOR Work Phone: [facility] Comment on above: Pre-employment healt h screening examination (Primary Dx) Start: 06-24-2024 End: 06-28-2024 ambulatory JACOB SALAZAR NATURAL GAS TECHNICIAN-CNM Facility:[facility] Start: 06-24-2024 End: 06-28-2024 Outreach Lab JACOB SALAZAR NATURAL GAS TECHNICIAN-CNM [facility] Start: 07-11-2018 End: 07-11-2018 Emergency department patient visit YESSI JONES [facility] Procedures Date Procedure Procedure Detail Performing Clinician Start: 07-24-2024 Antibody rubella Johana Nicholson NATURAL GAS TECHNICIAN-[employer] SH[employer]ER OPERATOR Work Phone: Start: 07-11-2018 Urinalysis YESSI RAYMOND Comment on above: Result Comment: URIN ALYSIS Performed By: #### 2 [id number] ####[facility],[address] [place] [address] Plan of Treatment Date Care Activity Detail Author Start: 05-17-2024 COVID-19 (2023-2 5 season) COVID-19 ( season) [facility] Start: 05-17-2024 FLU (#1) FLU (#1) [facility] Start: 12-13-2004 Microscopic observat ion [Identifier] in Cervix by Cyto stain Pap Smear [facility] Start: 12-13-2002 Hepatitis B (1 of 3 - 19+ 3-dose series) Hepatitis B (1 of 3 - 19+ 3-dose series) [facility] Start: 1999 MenB (1 of 2 - MenB 2-Dose Series Bexsero) MenB (1 of 2 - MenB 2-Dose Series Bexsero) [facility] Start: 12-13-1996 Varicella (1 of 2 - 13+ 2-dose series) Varicella (1 of 2 - 13+ 2-dose series) [facility] Start: 12-13-1990 Tetanus Diphtheria a nd Pertussis Vaccines (1 - Tdap) Tetanus Diphtheria and Pertussis Vaccines (1 - Tdap) [facility] Start: 12-13-1984 MMR (1 of 1 - Standa rd series) MMR (1 of 1 - Standard series) [facility] MR Brain WO contrast [facility] MR Cervical spine [facility] End: 07-24-2024 Quantiferon TB Gold [facility] Work Phone: Comment on above: For lab collect this frequency defaults to the next routine lab draw time. Routine times: 0600; 1100; 1400; 1900; 2200 for 1 Occurrences starting 07/24/2024 until 07/24/2024 Payers Date Payer Category Payer Self-pay 2024 Unknown [id number] 2022 Unknown [id number] 1985 Unknown [id number] [id number] 1985 Unknown [id number] [id number]. [id number] Unknown [id number] Unknown [id number] 2.16.8 [id number] Unknown [id number] 2.16.8 [id number] Unknown [id number] 2.16.8 [id number] Unknown [id number] 2.16.8 [id number] Social History Date Type Detail Facility Tobacco smoking status [facility] Start: 1985 Sex Assigned At Female A [facility] Tobacco smoking status AKIS Tobacco smoking consumption unknown [facility] Start: 1985 Sex assigned at Not on file A [facility] Gender identity Not on file [facility] Start: 03-15-2021 End: 02-19-2025 Tobacco smoking status NHIS Never smoked tobacco (finding) [facility] Start: 12-11-2024 Sex Female (finding) [facility] Evaluation note 02-19-2025 Note Date & Type Note Facility 02-19-2025 Evaluation note Diagnosis Onset Date Resolution Headache, cervicogenic chronic Ju ne 2024 8:25am [facility] Work Phone: Evaluation + Plan note 06-24-2024 Note Date & Type Note Facility 06-24-2024 Evaluation + Plan note Diagnostic Tests PendingHPV Screen, DNA Probe 06/24/24 [facility] Evaluation note Note Date & Type Note Facility Evaluation note Diagnosis Pre-employment health screening examination- Primary Health examination of defined subpopulation documented in this encounter [facility] Evaluation note Note Date & Type Note Facility Evaluation note No assessment information availa [facility] Work Phone: Evaluation note Note Date & Type Note Facility Evaluation note Diagnosis Onset Date Resolution Headache, cervicogenic acute Ju 2024 8:25am Headache noneactive February 19, 2025 8:25am [facility] Work Phone: Hospital course Narrative Note Date & Type Note Facility Hospital course Narrative No data available for this section [facility] Hospital Discharge instructions Note Date & Type Note Facility Hospital Discharge instructions No data available for this section [facility] Progress note Note Date & Type Note Facility Progress note No data available for this section [facility] Reason for referral (narrative) Note Date & Type Note Facility Reason for referral (narrative) No reason for referral information available [facility] Work Phone: Summary Purpose Family History No Family History Records Found Relationship Condition Age at Onset Recorded Date/T jud father History of malignant neoplasm of kidney U nknown Malignant melanoma Unknown mother Prediabetes Unknown Advance Directives No Advanced Directives Records FoundNo Advanced Directives Records FoundNo Advanced Directives Records FoundNo Advanced Directives Records FoundNo Advanced Directives Records Found Chief Complaint and Reason for Visit Chief Complaint Admit Date Headache February 19, 2025 8:25a m Reason for Visit Admit Date Headache, cervicogenic February 19, 2025 8: 25am Headache February 19, 2025 8:25a m Reason for Visit Admit Date Headache, cervicogenic February 19, 2025 8: 25am Additional Source Comments INFORMATION SOURCE (unrecogn ized section and content) DATE CREATED AUTHOR 08/23/2018 [facility] DATE CREATED AUTHOR AUTHOR'S ORGANIZ ATION 07/20/2024 [facility] DATE CREATED AUTHOR AUTHOR'S ORGANIZ ATION 08/01/2024 [facility] DATE CREATED AUTHOR AUTHOR'S ORGANIZ ATION 09/10/2024 [facility] DATE CREATED AUTHOR AUTHOR'S ORGANIZ ATION 04/10/2025 [facility] Care Teams (unrecognized sec tion and content) Team Status: Active Member Role/Relationship Status Dates Dr. Jamie Porras MD Primary Care Provider Active Team Status: Inactive Member Role/Relationship Status Dates Dr. Jamie Porras MD Primary Care Provider Active Start: December 04, 2024 End: December 04, 2024 Dr. Jamie Porras MD Attending Provider Active Start: December 04, 2024 End: December 04, 2024 Dr. Jamie Porras MD Referring Provider Active Start: December 04, 2024 End: December 04, 2024 Team Status: Inactive Member Role/Relationship Status Dates Dr. Jamie Porras MD Primary Care Provider Active Start: February 19, 2025 End: February 19, 2025 Dr. Jamie Porras MD Referring Provider Active Start: February 19, 2025 End: February 19, 2025 Dr. Koffi Lindsay MD Attending Provider Active Start: February 19, 2025 End: February 19, 2025 Team Status: Inactive Member Role/Relationship Status Dates Dr. Jamie Porras MD Primary Care Provider Active Start: March 18, 2025 End: March 18, 2025 Dr. Jamie Porras MD Attending Provider Active Start: March 18, 2025 End: March 18, 2025 Dr. Jamie Porras MD Referring Provider Active Start: March 18, 2025 End: March 18, 2025 Team Status: Active Member Role Status Dates Dr. Jamie Porras MD Primary Care Provider Active Team Status: Inactive Member Role Status Dates Dr. Jamie Porras MD Primary Care Provider Active Start: December 04, 2024 End: December 04, 2024 Dr. Jamie Porras MD Attending Provider Active Start: December 04, 2024 End: December 04, 2024 Dr. Jamie Porras MD Referring Provider Active Start: December 04, 2024 End: December 04, 2024 Goals (unrecognized section and content) Goals may be documented in a n alternate section FOR RECORDS PERTAINING TO PATIENTS WHO ARE OR HAVE BEEN ENROLLED IN A CHEMICAL DEPENDENCY/SUBSTANCEABUSE PROGRAM, SOME INFORMATION MAY BE OMITTED. This clinical summary was aggregated from multiple sources. Caution should be exercised in using it in the provision of clinical care. This summary normalizes information from multiple sources, and as a consequence, information in this document may materially change the coding, format and clinical context of patient data. In addition, data may be omitted in some cases. CLINICAL DECISIONS SHOULD BE BASED ON THE PRIMARY CLINICAL RECORDS. [employer] provides no warranty or guarantee of the accuracy or completeness of information in this document.
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
== END | disposition home or self-care (01) ==
LOC: MRI 08:13
PROVIDERS: PCP Family Medicine; Referring Provider Psychiatry & Neurology Neurology; Visit Provider Psychiatry & Neurology Neurology
DX: G44.86 Cervicogenic headache (principal)
CPT/HCPCS: 70551; 72141